=== PATIENT | female | born 1955 | race Caucasian/White ===

== ENCOUNTER 2016-12-05 12:38 | Emergency (ER) | payer OTHER ==
[~2016-12-05] VITALS: Ht 165.1 cm; Wt 63.6 kg
[2016-12-05 12:56] VITALS: BP 149/83; PULSE 91; RESP 16; O2SAT 99
--- NOTE | 2016-12-05 13:15 | ED.REPORT ---
HPI-Extremity Problem Lower Date of Service Dec 05, 2016 ED Provider: Ayah Dyer MD The patient is an otherwise healthy 61 year old female who presents to the emergency department complaining of right lower extremity pain. The patient had a total right hip replacement on November 21. Her surgery went well and her recovery has been going well. Since then she has noticed inner thigh pain and over the last few days she has noticed intermittent right calf pain. She denies shortness of breath, pleuritic pain, palpitations, chest pain or rash. Nursing Notes Stated Complaint: RULE OUT POSS DVT ON RT LEG Chief Complaint: Extremity Trauma Nursing Notes Reviewed: Yes Allergies: Coded Allergies: No Known Allergies (Unverified , 12/05/16) General Time Seen by MD: 13:12 Chief Complaint Other (RLE pain) Hx Obtained From: Patient Arrived By: Walk-in Onset Occurred: 4 days ago Symptom Duration: Since onset Location: : Leg right Quality: Painful Severity: Current: Mild Severity: Maximum: Moderate Pertinent Negative: Pt denies other symptoms Recent Healthcare: Recent doctor visit, Recent hospitalization, Previous surgery (hip replacement) Similar Sx Previous: No Past Medical History Past Medical History None Past Surgical History Hip replacement Family History Noncontributory Smoking History Unknown if Ever Smoker Social History Drug Use: Denies drug use Other Social History: Good social support, , Local resident Occupation ED nurse Ambulatory Status Independent Review of Systems Musculoskeletal: Reports: Extremity pain, Extremity swelling Skin: Reports Bruising, Denies Rash Complete sys rev & neg: except as marked. Respiratory: Denies: Pleuritic pain, Shortness of breath Cardiovascular: Denies: Chest pain, Palpitations Physical Exam Initial Vital Signs Vital Signs (First) Date Time Temp Pulse Resp B/P Pulse Ox O2 Delivery O2 Flow Rate FiO2 12/05/16 12:56 36.6 91 16 149/83 99 Room Air Initial VS: Reviewed Head / Eyes: Atraumatic, Normocephalic, PERRL ENT: Mucous membranes moist, Conjunctiva normal, No scleral icterus Neck: Supple, Non-tender, Full range of motion Respiratory: Breath sounds normal, Clear to auscultation, No respiratory distress Cardiovascular: Regular rate & rhythm, Heart sounds normal, Intact distal pulses Abdomen / GI: Soft, Non-tender, No guarding, No rebound, No distention Lymphatic: No lymphadenopathy Upper Extremities: Vascular intact, Neuro intact, No swelling, No tenderness Skin: Warm, Dry, No cyanosis Neurologic: Alert, Oriented, Nonfocal Psychiatric: Mood/affect normal, Behavior normal, Normal thought content Lower Extremity / Pelvis / MS: Neurologic intact, Vascular intact There is bruising all the way down the anterior lateral part of the right pink and right leg. There is ecchymosis to the interior thigh as well. Right calf is soft. Surgical site with steri strips, appears to be healing well with no signs of infection. Ankle / Foot: Neurologic intact, Vascular intact General/Constitutional: Awake, Alert, No acute distress, Cooperative Interpretation & Diagnostics Interpretation & Diagnostics: Right lower extremity US negative for DVT Re-Eval/Medical Decision Source of Hx: Old records Re-Evaluation/Progress : Re-Evaluation/Progress Note: Discussed results, diagnosis, and plan for discharge. All questions were addressed. Counseled Regarding: Diagnosis, Need for follow-up, When/why to return to ED Discharge & Departure Impression: Primary Impression: Post-operative pain Additional Impressions: Right calf pain S/P hip replacement Laterality: right Qualified Code: Z96.641 - Presence of right artificial hip joint Ruled Out: DVT (deep venous thrombosis) Disposition: Home Discharge Condition All VS Reviewed: Yes Condition: Stable Additional Instructions: Thank you for entrusting us with your care today. Your ultrasound today is negative for a blood clot. Continue your normal pain regiment. Followup as scheduled. Return to the emergency department for any new or concerning symptoms. We can't wait to have you back at work! Referrals: Jeannine Gomez (PCP) Scribe Attestation Portions of this note were transcribed by Haley Cruz. I, Dr. Dyer personally performed the history, physical exam and medical decision-making; I reviewed and confirmed the accuracy of the information in the transcribed note. Signed by: Lance Ku, 12/05/2016 at 2217. copies to: Jeannine Gomez Shawna L MD Dec 05, 2016 13:15 Haley Cruz Dec 05, 2016 13:19
--- NOTE | 2016-12-05 14:17 | DRSVH ---
PROCEDURE: US VEINOUS LEG DUPLEX UNILATERAL, RIGHT INDICATIONS: tightness and swelling 2 weeks after hip surg TECHNIQUE: Real-time imaging, as well as color and pulse Doppler interrogation, were performed of the lower extr emity deep veins from the inguinal ligament to the popliteal fossa. COMPARISON: None. FINDINGS: The deep veins are normally compressible, and free of intraluminal thrombus. Color and pu lse Doppler demonstrate normal phasic intraluminal flow. There is normal augmentation response to di stal compression maneuver. IMPRESSION: No deep venous thrombosis identified within the right lower extremity. Dictated by: Julian YOUNG Interpreted: Amanda Galicia MD on 12/05/2016 at 14:17 Transcribed by: BOBBY on 12/05/2016 at 14:17 Approved by: Amanda Galicia MD, PhD on 12/05/2016 at 17:02
[2016-12-05 14:41] VITALS: BP 151/87; PULSE 80; RESP 16; O2SAT 98
[2016-12-05 15:08] VITALS: BP 151/87; PULSE 80; RESP 16; O2SAT 98
== END 2016-12-05 15:08 | disposition home or self-care (01) ==
LOC: SED 12:38
DX: G89.18 Other acute postprocedural pain (principal); M79.604 Pain in right leg; Z96.641 Presence of right artificial hip joint